=== PATIENT | female | born 1960 | race Caucasian/White ===

== ENCOUNTER 2016-11-04 18:19 | Inpatient (IN) | payer OTHER ==
[~2016-11-04] VITALS: Ht 157.5 cm; Wt 57.6 kg
[2016-11-04] MEDS ORDERED: HYDROmorphONE 1 MG/ML SYG IV STA (18:33)
[2016-11-04] MEDS ORDERED: ONDANSETRON 4 MG INJ IV STA (18:33)
[2016-11-04] MEDS ORDERED: SOD CHLORIDE 0.9% 1,000 ML IV STA (18:33)
[2016-11-04 19:20] LABS: BASOPHIL # 0.1 10^3/ul (0.0-0.1); EOSINOPHILS % 0.3 % (0.0-7.0); HEMATOCRIT 38.3 % (37.0-47.0); HEMOGLOBIN 12.3 g/dl (12.0-16.0); LYMPHOCYTES # 2.1 10^3/ul (0.8-2.9); LYMPHOCYTES % 16.4 % (15.0-51.0); MEAN CORPUSCULAR HEMOGLOBIN 31.9 pg (29.0-33.0); MEAN CORPUSCULAR HGB CONC 32.1 g/dl (32.0-37.0); MEAN CORPUSCULAR VOLUME 99.2 fl (82.0-101.0); MEAN PLATELET VOLUME 12.6 fl (7.4-10.4); MONOCYTE # 0.9 10^3/ul (0.3-0.9); MONOCYTES % 7.4 % (0.0-11.0); NEUTROPHILS % 69.9 % (39.0-77.0); NUCLEATED RED BLOOD CELLS # 0.4 10^3/ul (0.0-0.0); NUCLEATED RED BLOOD CELLS% 3.3 /100WBC (0.0-0.0); PLATELET COUNT 236 10^3/UL (140-415); RED BLOOD COUNT 3.86 10^6/ul (4.20-5.40); RED CELL DISTRIBUTION WIDTH 17.2 % (11.5-14.5); WHITE BLOOD COUNT 12.6 10^3/ul (4.8-10.8)
--- NOTE | 2016-11-04 19:34 | ERA ---
ER Documentation Chief Complaint Date/Time DATE: 11/04/16 TIME: 19:31 Chief Complaint Left arm fracture HPI 56-year-old woman [facility] for pain to the left upper arm, x-ray today revealed pathologic fracture. Patient has metastatic breast cancer. She denies fevers or chills, denies direct trauma to the upper extremity, no chest pain or shortness of breath. ROS All systems reviewed and are negative except as per history of present illness. Medications Home Meds Reported Medications Lorazepam* (Lorazepam*) 0.5 Mg Tablet, 0.5 MG PO Q6 Y for ANXIETY, TAB 11/04/16 Bisacodyl* (Bisacodyl*) 10 Mg Supp, 10 MG IA DAILY, SUPP 11/04/16 [Morphine Slf 20MG/Ml] No Conflict Check, 0.25 ML PO Q3H 11/04/16 Hyoscyamine Sulfate* (Levsin* SL) 0.125 Mg Subl, 0.125 MG SL Q4H Y for EXCESSIVE SECRETION, TAB 11/04/16 Lactulose* (Lactulose*) 20 Gm/30 Ml Solution, 20 GM PO DAILY, ML 11/04/16 Acetaminophen* (Acephen*) 650 Mg Supp.rect, 650 MG IA Q6H Y for FOR TEMP>100F, SUPP.RECT FOR MILD PAIN 11/04/16 Prochlorperazine* (Prochlorperazine*) 10 Mg Tablet, 10 MG PO Q6H Y for NAUSEA, TAB 11/04/16 Metformin Hcl* (Metformin Hcl*) 500 Mg Tablet, 500 MG PO WITH BREAKFAST DINNE, # 60 TAB 11/04/16 Discontinued Reported Medications Prochlorperazine* (Prochlorperazine*) 10 Mg Tablet, 10 MG PO Q6H Y for NAUSEA, TAB 11/04/16 Sennosides* (Senna Lax*) 8.6 Mg Tablet, 2 TAB PO BID, TAB 11/04/16 Docusate Sodium* (Colace*) 100 Mg Capsule, 200 MG PO DAILY, #30 CAP 11/04/16 Allergies Allergies: Coded Allergies: tramadol (Unverified Allergy, Unknown, 11/04/16) PMhx/Soc Metastatic breast cancer, pathologic fractures, diabetes mellitus 2, anxiety disorder, History of Surgery: Yes (tumor removal right breast, hysterectomy) Anesthesia Reaction: No Hx Neurological Disorder: No Hx Respiratory Disorders: No Hx Cardiac Disorders: No Hx Psychiatric Problems: Yes (anxiety) Hx Miscellaneous Medical Probl: Yes (breast ca with mets, developmental delay) Hx Alcohol Use: No Hx Substance Use: No Hx Tobacco Use: No Smoking Status: Never smoker FmHx Family History: No diabetes Physical Exam Vitals Vital Signs Date Time Temp Pulse Resp B/P Pulse Ox O2 Delivery O2 Flow Rate FiO2 11/04/16 19:09 98.8 118 20 121/63 90 11/04/16 18:25 98.8 123 20 121/63 94 Physical Exam Const: [] Head: Atraumatic Eyes: Normal Conjunctiva ENT: Normal External Ears, Nose and Mouth. Neck: Full range of motion..~ No meningismus. Resp: Clear to auscultation bilaterally Cardio: Regular rate and rhythm, no murmurs Abd: Soft, non tender, non distended. Normal bowel sounds Skin: No petechiae or rashes Back: No midline or flank tenderness Ext: Positive left lateral upper extremity tenderness to touch with mild soft tissue swelling, no erythema, no lacerations Neur: Awake and alert Psych: Normal Mood and Affect Result Diagram: 11/07/16 0509 11/07/16 0509 Results 24 hrs Laboratory Tests Test 11/04/16 18:50 White Blood Count 12.610^3/ul Red Blood Count 3.8610^6/ul Hemoglobin 12.3g/dl Hematocrit 38.3% Mean Corpuscular Volume 99.2fl Mean Corpuscular Hemoglobin 31.9pg Mean Corpuscular Hemoglobin Concent 32.1g/dl Red Cell Distribution Width 17.2% Platelet Count 47500^3/UL Mean Platelet Volume 12.6fl Neutrophils % 69.9% Lymphocytes % 16.4% Monocytes % 7.4% Eosinophils % 0.3% Basophils % 1.0% Nucleated Red Blood Cells % 3.3/100WBC Neutrophils # (Manual) 8.810^3/ul Lymphocytes # 2.110^3/ul Monocytes # 0.910^3/ul Eosinophils # 0.010^3/ul Basophils # 0.110^3/ul Nucleated Red Blood Cells # 0.410^3/ul Prothrombin Time 13.5Sec Prothrombin Time Ratio 1.1 INR International Normalized Ratio 1.03 Activated Partial Thromboplast Time 29.6Sec Sodium Level 135mmol/L Potassium Level 3.7mmol/L Chloride Level 99mmol/L Carbon Dioxide Level 29mmol/L Anion Gap 11 Blood Urea Nitrogen 7mg/dl Creatinine 0.42mg/dl Glucose Level 122mg/dl Calcium Level 12.0mg/dl Current Medications Medications (Trade) Dose Ordered Sig/Marielos Route PRN Reason Start Time Stop Time Status Last Admin Dose Admin Sodium Chloride (NS) 1,000 ml @ 1,000 mls/hr Q1H STAT IV 11/04/16 18:33 11/04/16 19:32 DC 11/04/16 19:00 Hydromorphone HCl (Dilaudid) 1 mg ONCE STAT IV 11/04/16 18:33 11/04/16 18:34 DC 11/04/16 19:01 Ondansetron HCl (Zofran Inj) 4 mg ONCE STAT IV 11/04/16 18:33 11/04/16 18:34 DC 11/04/16 19:00 Procedures/MDM IV line was established patient was placed on quality assurance monitor final rhythm strip revealed a sinus rhythm at about 80 bpm with upright P and T waves. Patient was afebrile. I administered 1 L normal saline intravenously, hydromorphone 1 mg IV and Zofran 4 mg IV. Patient already has the x-ray report of the left humerus, so further imaging of the humerus has been deferred at this time. Chest X-ray 1V Interpreted by me: Soft Tissue: No acute abnormalities Bones: No acute abnormalities Mediastinum/Cardiac Silhouette/Lungs: No acute abnormalities X-ray left elbow 3V Interpreted by me: Fat Pads: Normal Bones: No fracture Joints: No dislocation Foreign body: None EKG performed, read by me: 80 bpm, normal sinus rhythm, normal axis, no acute ST segment changes, narrow QRS complex, with good R-wave progression in precordial leads. CBC was normal, electrolytes revealed hypercalcemia consistent with metastatic breast cancer, coagulation profile unremarkable. I spoke to her orthopedic surgeon physical education instructor who recommended inpatient management for possible ORIF Patient admitted to Dr. Connors Departure Diagnosis: Primary Impression: Pathologic fracture of humerus Qualified Code: M84.522A - Pathological fracture of left humerus due to neoplastic disease, initial encounter Additional Impressions: Intractable pain Metastatic breast cancer Condition: SALBADOR Vinson MD Nov 04, 2016 19:34
[2016-11-04 19:42] LABS: CREATININE 0.42 mg/dl (0.44-1.00); POTASSIUM 3.7 mmol/L (3.5-5.1)
[2016-11-04 20:19] LABS: INR 1.03; PROTIME 13.5 Sec (12.2-14.2); PT RATIO 1.1
[2016-11-04 20:20] LABS: PARTIAL THROMBOPLASTIN TIME 29.6 Sec (25.0-35.0)
[2016-11-04] MEDS ORDERED: METF500T4 PO (20:38)
[2016-11-04] MEDS ORDERED: DOCU-144 PO (20:41)
[2016-11-04] MEDS ORDERED: PROC10TA10 PO ×2 (20:42→21:03)
[2016-11-04] MEDS ORDERED: SENN-53 PO (20:42)
[2016-11-04] MEDS ORDERED: ACET650S9 PR (20:44)
[2016-11-04] MEDS ORDERED: LACT20SO2 PO (20:45)
[2016-11-04] MEDS ORDERED: [UNRECOGNIZED DRUG - CODE] SL (20:46)
[2016-11-04 20:55] VITALS: TEMP 98.8
[2016-11-04] MEDS ORDERED: MORPHINE PO (20:56)
[2016-11-04] MEDS ORDERED: BISA10SU75 PR (20:57)
[2016-11-04] MEDS ORDERED: LORA0.5T PO (20:58)
[2016-11-04 22:09] VITALS: BP 137/87; PULSE 110; RESP 20
[2016-11-04 22:10] VITALS: Ht 157.5 cm; Wt 57.6 kg
[2016-11-04] MEDS ORDERED: ACETAMINOPHEN 325 MG TAB PO PRN (23:30)
[2016-11-04] MEDS: SOD CHLORIDE 0.9% 1,000 ML IV SCH (23:44)
[2016-11-04] MEDS: morphine 4 MG/ML VIAL IV SCH (23:44)
[2016-11-04] MEDS: ONDANSETRON 4 MG INJ IV PRN (23:45)
[2016-11-05 03:26] VITALS: BP 126/81; RESP 22
[2016-11-05] MEDS: morphine 4 MG/ML VIAL IV SCH ×4 (05:43→23:47)
[2016-11-05] MEDS: ONDANSETRON 4 MG INJ IV PRN ×2 (05:43→16:41)
[2016-11-05 08:30] VITALS: BP 119/73; RESP 22
[2016-11-05 09:39] LABS: ABNORMAL IP MESSAGE 1; BASOPHIL # 0.1 10^3/ul (0.0-0.1); BASOPHILS % 0.7 % (0.0-2.0); EOSINOPHILS % 0.2 % (0.0-7.0); HEMATOCRIT 34.5 % (37.0-47.0); HEMOGLOBIN 10.8 g/dl (12.0-16.0); LYMPHOCYTES # 1.6 10^3/ul (0.8-2.9); LYMPHOCYTES % 13.5 % (15.0-51.0); MEAN CORPUSCULAR HEMOGLOBIN 31.8 pg (29.0-33.0); MEAN CORPUSCULAR HGB CONC 31.3 g/dl (32.0-37.0); MEAN CORPUSCULAR VOLUME 101.5 fl (82.0-101.0); MEAN PLATELET VOLUME 12.7 fl (7.4-10.4); MONOCYTE # 0.9 10^3/ul (0.3-0.9); MONOCYTES % 8.1 % (0.0-11.0); NUCLEATED RED BLOOD CELLS # 0.4 10^3/ul (0.0-0.0); NUCLEATED RED BLOOD CELLS% 3.1 /100WBC (0.0-0.0); PLATELET COUNT 219 10^3/UL (140-415); RED CELL DISTRIBUTION WIDTH 17.2 % (11.5-14.5); WHITE BLOOD COUNT 11.6 10^3/ul (4.8-10.8)
[2016-11-05 09:41] LABS: POSITIVE DIFF @See below
--- NOTE | 2016-11-05 09:55 | RADRPT ---
PROCEDURE: XR Chest. CLINICAL INDICATION: Cancer. TECHNIQUE: Single frontal view of the chest. COMPARISON: None. FINDINGS: The cardiomediastinal silhouette is within normal limits. Tortuous thoracic aorta. Mild elevation o f the right hemidiaphragm. The lungs are clear. No signs of pleural fluid or pneumothorax are seen. The osseous structures and soft tissues are unremarkable. IMPRESSION: No evidence for active cardiopulmonary disease. RPTAT: [facility] Physician Srini Date Time Electronically viewed and signed by Physician Srini on 11/04/2016 19:38 RS/
--- NOTE | 2016-11-05 09:56 | RADRPT ---
PROCEDURE: CR Left Elbow CLINICAL INDICATION: Cancer TECHNIQUE: AP, lateral, and an oblique radiographs were submitted. COMPARISON: None FINDINGS: Osseous Structures: There is an aggressive lytic process involving the mid-left humerus seen at the edge of the study on the AP view. The osseous elements otherwise appear intact. Joint Spaces: The joint spaces are well maintained. No joint effusion is evident. Soft Tissues: Appear unremarkable. IMPRESSION: 1. There is an aggressive appearing lytic process involving the mid diaphysis of the left humerus s een on the edge of the AP view only. This could be better evaluated by means of a left humerus seri es. 2. The elbow is otherwise unremarkable. Physician Byron Date Time Electronically viewed and signed by Physician Byron on 11/04/2016 20:39 /
[2016-11-05 10:12] LABS: CREATININE 0.43 mg/dl (0.44-1.00); POTASSIUM 3.4 mmol/L (3.5-5.1)
--- NOTE | 2016-11-05 10:20 | HP ---
DATE OF ADMISSION: 11/04/2016 CHIEF COMPLAINT: Left upper arm pain. HISTORY OF PRESENT ILLNESS: The patient is an 56-year-old female with history of cognitive developmental delay, but she has high functional, also has metastatic cancer of unknown etiology, suspicious for breast cancer. The patient also has history of diabetes but has been refusing meds. The patient is a resident of [facility] but has been under hospice care. The patient was complaining of left upper extremity pain, which was severe. It started a few days ago. The patient could not move her arm because of severe pain. The patient did not have any fall. No ecchymoses. The patient did notice a bulge on the left upper part of her arm. The patient was given [id number] Ultram, however, continued to have significant pain. A stat x-rays were ordered at the [facility] today, and the patient was noted to have ambulated minimally displaced fracture of the mid humeral shaft with associated areas of lysis representing pathological fractures secondary to bony METS. The patient also underwent left shoulder x-ray, which revealed chronic changes with concern to lytic metastases in the proximal humerus and at the central rib cage suspicious for lytic metastatic disease. The patient was sent to [facility] ER after revoking hospice. The patient was noted to have stable vital signs. However, the patient had significant pain and did receive IV Dilaudid and IV Zofran. I spoke with Dr. Pedro, ER physician, and the decision was made to admit her on med/surg for orthopedic evaluation and pain control. The patient's calcium incidentally was noted to be 12. The patient denies any chest pain or shortness of breath. The patient has been progressively getting weaker. The patient's weight back in August 2016 was 135 pounds. The patient has lost significant weight due to poor p.o. intake and now she is down to 57.6 kg. The patient did report nausea and vomiting after starting tramadol. Therefore, it will be discontinued. The patient denied any leg edema. No reported resting leg pain. The patient has chest wall pain. No reported headache or syncope. No history of sore throat. No history of cough. The patient is frail, weak, and due to pain has not been getting out of bed. No focal weakness. The patient has remained awake, alert, despite developmental delay. The patient is high functional. The patient also has a history of anxiety. PAST SURGICAL HISTORY: The patient is status post hysterectomy and breast lumpectomy. SOCIAL HISTORY: No smoking. No alcohol. ALLERGIES: NONE. FAMILY HISTORY: Noncontributory for patient's condition. PHYSICAL EXAMINATION: GENERAL: The patient is to be conscious, awake, alert, and fairly oriented. VITAL SIGNS: Upon arrival in the ER, temperature 98.8, pulse 123, respirations 20, blood pressure 121/63, O2 sat 94 percent on 3 L nasal cannula. HEENT: Atraumatic and normocephalic. Conjunctivae are normal. Oropharynx is clear. NECK: Supple. No thyromegaly. CHEST: Fairly clear. No use of accessory muscles. CV: Regular rate and rhythm. S1, S2 normal. No murmur. ABDOMEN: Soft and nontender. Bowel sounds are present. EXTREMITIES: No ankle edema. No clubbing or cyanosis. Pedal pulses are palpable. SKIN: Without acute rash. The patient multiple decubitus in the sacral coccygeal area. Please see description under nursing assessment. NEURO: The patient is awake and alert with generalized weakness. MUSCULOSKELETAL: The patient has local bulge in the left upper humerus, and it is extremely tender to touch. LABS: Sodium 135, potassium 3.7, BUN 7, creatinine 0.4, glucose 122, calcium 12. normal. WBC 12.6, hemoglobin 12.3, platelet 236. Chest x-ray, echo, and EKG pending. IMPRESSION: 1. Pathological fracture, left humerus. 2. Metastatic cancer of unknown etiology with extensive skeletal metastasis, possibly from breast cancer. 3. History of lumbar vertebral fracture from bony METS. 4. Anxiety. 5. Cognitive development delay. PLAN: The patient admitted on medical floor. The patient will be given IV fluids, IV morphine. Due to ongoing weight loss and diminished appetite, we will continue her on regular diet and also, as per the patient request, will not check her blood sugar and will not put her on any diabetic medication. Also, a consult from Dr. Gill will be requested. We will also obtain an echocardiogram for preop cardiac evaluation in case surgical intervention is needed. Further recommendations will depend on the patient's hospital course. We will do follow-up labs. Plan of care was discussed with Dr. Pedro, ER physician. Dictated By: You Connors MD /moreno/grs /Document#: [id number]
[2016-11-05] MEDS: SOD CHLORIDE 0.9% 1,000 ML IV SCH (12:18)
[2016-11-05 13:15] VITALS: BP 112/60; RESP 20
--- NOTE | 2016-11-05 14:21 | PN ---
Date/Time of Note Date/Time of Note DATE: 11/05/16 TIME: 14:19 Assessment/Plan VTE Prophylaxis VTE Prophylaxis Intervention: other Lines/Catheters IV Catheter Type (from Nrs): Peripheral IV Urinary Cath still in place: No Assessment/Plan Assessment/Plan 1. Hypokalemia- replet K, am BMP 1. Pathological fracture, left humerus. - ortho consult- Dr Gill NOTIFIED 2. Metastatic cancer of unknown etiology with extensive skeletal metastasis, possibly from breast cancer. 3. History of lumbar vertebral fracture from bony METS. 4. Anxiety. 5. Cognitive development delay.- con to monitor Plan of care dw Dr Connors.staff Subjective 24 Hr Interval Summary Free Text/Dictation resting, alert, awake, c/o left upper arm pain, afebrile, Dr Gill was notified, aw family as well, Respiratory: no complaints Cardiovascular: no complaints Gastrointestinal: no complaints Musculoskeletal: no complaints Skin: no complaints Exam/Review of Systems Vital Signs Vitals Vital Signs Date Time Temp Pulse Resp B/P Pulse Ox O2 Delivery O2 Flow Rate FiO2 11/05/16 09:30 Nasal Cannula 2.0 11/05/16 08:30 97.8 92 22 119/73 97 Intake and Output 11/04/16 11/04/16 11/05/16 15:00 23:00 07:00 Intake Total 930 ml Balance 930 ml Exam Constitutional: alert, oriented Cardiovascular: nl pulses, regular rate and rhythm Gastrointestinal: non-tender, soft Musculoskeletal: other Extremities: normal pulses Neurological: nl mental status, nl speech Results Result Diagram: 11/05/1692311/05/16 0924 Results 24 hrs Laboratory Tests Test 11/04/16 18:50 11/05/16 09:24 White Blood Count 12.6 H 11.6 H Red Blood Count 3.86 L 3.40 L Hemoglobin 12.3 10.8 L Hematocrit 38.3 34.5 L Mean Corpuscular Volume 99.2 101.5 H Mean Corpuscular Hemoglobin 31.9 31.8 Mean Corpuscular Hemoglobin Concent 32.1 31.3 L Red Cell Distribution Width 17.2 H 17.2 H Platelet Count 236 219 Mean Platelet Volume 12.6 H 12.7 H Neutrophils % 69.9 72.0 Lymphocytes % 16.4 13.5 L Monocytes % 7.4 8.1 Eosinophils % 0.3 0.2 Basophils % 1.0 0.7 Nucleated Red Blood Cells % 3.3 H 3.1 H Neutrophils # (Manual) 8.8 H 8 H Lymphocytes # 2.1 1.6 Monocytes # 0.9 0.9 Eosinophils # 0.0 0.0 Basophils # 0.1 0.1 Nucleated Red Blood Cells # 0.4 H 0.4 H Prothrombin Time 13.5 Prothrombin Time Ratio 1.1 INR International Normalized Ratio 1.03 Activated Partial Thromboplast Time 29.6 Sodium Level 135 139 Potassium Level 3.7 3.4 L Chloride Level 99 104 Carbon Dioxide Level 29 31 Anion Gap 11 7 L Blood Urea Nitrogen 7 7 Creatinine 0.42 L 0.43 L Glucose Level 122 88 Calcium Level 12.0 H 12.0 H Medications Medications Current Medications Ondansetron HCl (Zofran Inj) 4 mg Q6H PRN IV NAUSEA AND/OR VOMITING Last administered on 11/05/16 05:43; Admin Dose 4 MG; Start 11/04/16 at 23:30 Morphine Sulfate (morphine) 4 mg Q6H IV Last administered on 11/05/16 11:35; Admin Dose 4 MG; Start 11/05/16 at 00:00 Morphine Sulfate 4 mg 4 mg Q3H PRN IV BREAKTHROUGH PAIN; Start 11/05/16 at 01: 00 Sodium Chloride (NS) 1,000 ml @ 75 mls/hr [id number] IV Last administered on 11/05 12:18; Admin Dose 75 MLS/HR; Start 11/04/16 at 23:30 Acetaminophen (Tylenol Tab) 650 mg Q4H PRN PO PAIN AND OR ELEVATED TEMP; Start 11/04/16 at 23:30 NATALI RAMIREZ Nov 05, 2016 14:21
[2016-11-05] MEDS ORDERED: POTASSIUM CHLORIDE (SR) 20 MEQ TAB PO STA (14:22)
--- NOTE | 2016-11-05 14:28 | RADRPT ---
Echocardiogram Report Patient Name: JASON LO Gender: Female Date: 1960 Study Date: 05-Nov-2016 Internetworking Technician: Vikas Gorman RDCS Location: 430 Ref. Physician: KRYSTAL NOBLE Quality: Technically Difficult Study Procedures: Transthoracic echocardiogram with complete 2D, M-Mode, and doppler examination. Indications: Pre-op. 2D/M Mode Doppler Measurement Value Normal Ranges Measurement Value Normal Ranges LVIDd 2D 3.3 3.5 - 5.6 cm AV Peak Cuong 1.2 m/sec LVIDs 2D 2.1 2.1 - 4.1 cm AV Peak PG 5.9 mmHg LVPWd 2D 1.1 0.6 - 1.1 cm LVOT Peak Cuong 1.1 m/sec IVSd 2D 1.1 0.6 - 1.1 cm LVOT Peak PG 5.1 mmHg AoR Diam 2D 2.7 2.0 - 3.7 cm MV E Peak Cuong 0.6 m/sec EDV 2D 45.2 cm3 MV A Peak Cuong 0.8 m/sec ESV 2D 8.9 cm3 MV E/A 0.8 LA Dimen 2D 2.3 2.3 - 4.0 cm MV Decel Time 154 msec MV Decel [place] 4 MV E/A 0.8 TR Peak Cuong 2.0 m/sec TR Peak PG 15.7 mmHg RVSP 19.0 mmHg Findings Left Ventricle: Overall, normal left ventricular systolic function. Not all segments visualized. Normal left ventricular cavity size. Mild concentric left ventricular hypertrophy. Ejection fraction is visually estimated at 60 %. Tissue Doppler/Mitral Doppler indices are consistent with impaired relaxation (Stage I diastolic dysfunction). Right Ventricle: Normal right ventricular size. Normal right ventricular systolic function. Left Atrium: The left atrium is normal in size. Right Atrium: The right atrium is normal in size. Mitral Valve: Normal appearance and function of the mitral valve with trace physiologic regurgitation. Aortic Valve: Normal appearance of the aortic valve. No significant aortic stenosis or insufficiency. Tricuspid Valve: Normal appearance of the tricuspid valve. Estimated peak PA systolic pressure 19 mmHg. There is trace tricuspid regurgitation. Pulmonic Valve: Pulmonic valve not well visualized. Pericardium: Normal pericardium with no significant pericardial effusion. Aorta: Normal aortic root. IVC: Normal size and normal respiratory collapse consistent with normal right atrial pressure. Conclusions 1.Overall, normal left ventricular systolic function. Not all segments visualized. Normal left ventricular cavity size. Mild concentric left ventricular hypertrophy. Ejection fraction is visually estimated at 60 %. Tissue Doppler/Mitral Doppler indices are consistent with impaired relaxation (Stage I diastolic dysfunction). 2.Normal right ventricular size. Normal right ventricular systolic function. 3.The left atrium is normal in size. 4.The right atrium is normal in size. 5.No significant valvular stenosis or regurgitation seen. 6.Normal pericardium with no significant pericardial effusion. Electronically Signed By: Marquise Gayle 05-Nov-2016 14:26:46 -0700 Patient Name: JASON LO Study Date: 05-Nov-2016 [id number]
[2016-11-05] MEDS: morphine 4 MG/ML VIAL IV PRN (18:37)
[2016-11-05 20:40] VITALS: BP 112/74; RESP 20
--- NOTE | 2016-11-05 21:09 | RADRPT ---
PROCEDURE: XR Humerus. CLINICAL INDICATION: Pathologic fracture. TECHNIQUE: AP and lateral views of the left humerus were performed. COMPARISON: 11/04/2016 left elbow FINDINGS: Comminuted laterally angulated midshaft fracture of the left humerus. There appears to be exuberant callus formation suggestive of interval healing. Permeative appearance to the lytic lesions within the proximal and mid humeral shaft are noted recent question of lymphoma or metastatic disease. IMPRESSION: 1. Midshaft angulated comminuted fracture deformity of the left humerus with permeative appearance of the left humerus suggestive of pathologic fracture and metastatic disease. Bone survey or whole body bone scan is recommended for further evaluation of metastatic disease. RPTAT:AAJJ Physician Cassandra Date Time Electronically viewed and signed by Physician Cassandra on 11/05/2016 21:09 JOSE DANIEL/
--- NOTE | 2016-11-05 22:19 | CONS ---
DATE OF ADMISSION: 11/04/2016 DATE OF CONSULTATION: 11/05/2016 Orthopedic surgical consultation report HISTORY OF PRESENT ILLNESS: Patient is a 56-year-old female, a resident of a assisted facility under the care of the hospice care, who was admitted on 11/04/2016 through the emergency room because of the painful swelling involving the left arm which developed about several days ago without any memorable trauma. She is known to have multiple metastasis involving the spine and ribs from uncertain origin, probably the breast cancer. She obviously had the radiologic studies of the left humerus and was found to have the pathologic fracture and was sent to the emergency room. She is known to have diabetes and anxiety disorders. PHYSICAL EXAMINATION: My examination revealed a obvious tender swelling involving the upper portion of the left arm. The area was extremely the tender. The range of motion of the left shoulder was extremely limited because of the pain. There were no evidence of acute neurovascular compromise involving the right and left upper extremity. X-RAYS: The x-rays of the left humerus was not available for my review. However, a glimpse of the proximal shaft of the left humerus was visible in the chest x-ray and also in the x-rays of left elbow and there seems to be a pathologic fracture involving the shaft of the left humerus. IMPRESSION: Pathologic fracture of the left humerus. TREATMENT PLAN: 1. Obtain full review x-rays of the left humerus before planning on surgery. 2. Probably a candidate for intramedullary nailing of the pathologic fracture when patient is medically cleared for surgery. Dictated By: In Karma Gill MD /moreno/aidan /Document#: [id number]
[2016-11-06] MEDS: SOD CHLORIDE 0.9% 1,000 ML IV SCH ×2 (01:18→15:15)
[2016-11-06 03:18] VITALS: BP 110/71; RESP 20
[2016-11-06 05:11] LABS: ABNORMAL IP MESSAGE 1; BASOPHIL # 0.1 10^3/ul (0.0-0.1); EOSINOPHILS # 0.1 10^3/ul (0.0-0.5); EOSINOPHILS % 1.3 % (0.0-7.0); HEMATOCRIT 34.2 % (37.0-47.0); HEMOGLOBIN 10.7 g/dl (12.0-16.0); LYMPHOCYTES # 1.7 10^3/ul (0.8-2.9); LYMPHOCYTES % 16.4 % (15.0-51.0); MEAN CORPUSCULAR HEMOGLOBIN 31.8 pg (29.0-33.0); MEAN CORPUSCULAR HGB CONC 31.3 g/dl (32.0-37.0); MEAN CORPUSCULAR VOLUME 101.8 fl (82.0-101.0); MEAN PLATELET VOLUME 12.6 fl (7.4-10.4); MONOCYTE # 0.9 10^3/ul (0.3-0.9); MONOCYTES % 8.3 % (0.0-11.0); NEUTROPHILS % 67.4 % (39.0-77.0); NUCLEATED RED BLOOD CELLS # 0.3 10^3/ul (0.0-0.0); NUCLEATED RED BLOOD CELLS% 3.3 /100WBC (0.0-0.0); PLATELET COUNT 208 10^3/UL (140-415); RED BLOOD COUNT 3.36 10^6/ul (4.20-5.40); RED CELL DISTRIBUTION WIDTH 17.4 % (11.5-14.5); WHITE BLOOD COUNT 10.3 10^3/ul (4.8-10.8)
[2016-11-06 05:38] LABS: CREATININE 0.4 mg/dl (0.44-1.00); POTASSIUM 3.6 mmol/L (3.5-5.1)
[2016-11-06 05:51] LABS: POSITIVE DIFF @See below
[2016-11-06 05:55] LABS: CALCIUM 13.2 mg/dl (8.4-10.2)
[2016-11-06] MEDS: morphine 4 MG/ML VIAL IV SCH ×3 (06:17→18:00)
[2016-11-06 08:04] VITALS: BP 118/73; RESP 20
[2016-11-06] MEDS: ONDANSETRON 4 MG INJ IV PRN (12:34)
--- NOTE | 2016-11-06 12:43 | PN ---
Date/Time of Note Date/Time of Note DATE: 11/06/16 TIME: 12:39 Assessment/Plan VTE Prophylaxis VTE Prophylaxis Intervention: SCD's Lines/Catheters IV [facility]ter [facility]from [facility]): Peripheral IV Urinary Cath still in place: No Assessment/Plan Assessment/Plan - Pathological fracture, left humerus. Dr. Gill is following an orthopedic surgery consultation. Patient is cleared for surgery from internal medicine standpoint. 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 - History of lumbar vertebral fracture from bony METS. - Hypercalcemia secondary to #2, will give 4 mg of Zometa. - Anxiety. - Cognitive development delay. Further recommendations based on clinical course. Plan of care discussed with Dr. Connors. Exam/Review of Systems Vital Signs Vitals Vital Signs Date Time Temp Pulse Resp B/P Pulse Ox O2 Delivery O2 Flow Rate FiO2 11/06/16 08:04 97.7 88 20 118/73 97 11/05/16 20:10 Nasal Cannula 2.0 Intake and Output 11/05/16 11/05/16 11/06/16 14:59 22:59 06:59 Intake Total 2425 ml 1000 ml Balance 2425 ml 1000 ml Exam Constitutional: alert, oriented Psych: confusion, other (Developmentally delayed) Head: normocephalic Neck: supple Respiratory: normal air movement Cardiovascular: nl pulses Gastrointestinal: non-tender, soft Extremities: normal pulses, other (Left upper extremity tenderness, ) Skin: nl turgor Results Result Diagram: 11/06/16 0446 11/06/16 0446 Results 24 hrs Laboratory Tests Test 11/06/16 04:46 White Blood Count 10.3 Red Blood Count 3.36 L Hemoglobin 10.7 L Hematocrit 34.2 L Mean Corpuscular Volume 101.8 H Mean Corpuscular Hemoglobin 31.8 Mean Corpuscular Hemoglobin Concent 31.3 L Red Cell Distribution Width 17.4 H Platelet Count 208 Mean Platelet Volume 12.6 H Neutrophils % 67.4 Lymphocytes % 16.4 Monocytes % 8.3 Eosinophils % 1.3 Basophils % 1.0 Nucleated Red Blood Cells % 3.3 H Neutrophils # (Manual) 7 Lymphocytes # 1.7 Monocytes # 0.9 Eosinophils # 0.1 Basophils # 0.1 Nucleated Red Blood Cells # 0.3 H Sodium Level 145 H Potassium Level 3.6 Chloride Level 103 Carbon Dioxide Level 32 H Anion Gap 14 # Blood Urea Nitrogen 6 L Creatinine 0.40 L Glucose Level 81 Calcium Level 13.2 *H Medications Medications Current Medications Ondansetron HCl (Zofran Inj) 4 mg Q6H PRN IV NAUSEA AND/OR VOMITING Last administered on 11/06/16 12:34; Admin Dose 4 MG; Start 11/04/16 at 23:30 Morphine Sulfate (morphine) 4 mg Q6H IV Last administered on 11/06/16 06:17; Admin Dose 4 MG; Start 11/05/16 at 00:00 Morphine Sulfate 4 mg 4 mg Q3H PRN IV BREAKTHROUGH PAIN Last administered on 18:37; Admin Dose 4 MG; Start 11/05/16 at 01:00 Sodium Chloride (NS) 1,000 ml @ 75 mls/hr [id number] IV Last administered on 11/06 01:18; Admin Dose 75 MLS/HR; Start 11/04/16 at 23:30 Acetaminophen (Tylenol Tab) 650 mg Q4H PRN PO PAIN AND OR ELEVATED TEMP; Start 11/04/16 at 23:30 RASHAWN MOONEY Nov 06, 2016 12:43
[2016-11-06 13:41] VITALS: BP 126/80; RESP 18
--- NOTE | 2016-11-06 13:43 | RADRPT ---
Vent Rate: 104 bpm RR Interval: 0 msec [place] Interval: 134 msec QRS Duration: 74 msec QT Interval: 328 msec QTC Interval: 431 msec P-R-T [place]: 48 - -28 - -[address]/T wave abnormality, consider inferior ischemia ST/T wave abnormality, consider anterior ischemia Abnormal ECG Electronically Signed By: Isidro Perez [id number]
[2016-11-06] MEDS ORDERED: ZOLEDRONIC ACID 4 MG in SOD CHLORIDE 0.9% 100 ML IVPB ONE (14:00)
[2016-11-06 21:36] VITALS: BP 130/78; RESP 22
[2016-11-07 02:55] VITALS: BP 126/76; RESP 22
[2016-11-07] MEDS: SOD CHLORIDE 0.9% 1,000 ML IV SCH ×3 (05:28→21:16)
[2016-11-07] MEDS: ONDANSETRON 4 MG INJ IV PRN (05:29)
[2016-11-07] MEDS: morphine 4 MG/ML VIAL IV SCH ×4 (05:30→18:00)
[2016-11-07 06:05] LABS: ABNORMAL IP MESSAGE 1; BASOPHIL # 0.1 10^3/ul (0.0-0.1); BASOPHILS % 0.7 % (0.0-2.0); EOSINOPHILS # 0.1 10^3/ul (0.0-0.5); EOSINOPHILS % 0.7 % (0.0-7.0); HEMATOCRIT 37.2 % (37.0-47.0); HEMOGLOBIN 11.7 g/dl (12.0-16.0); LYMPHOCYTES % 9.7 % (15.0-51.0); MEAN CORPUSCULAR HEMOGLOBIN 31.8 pg (29.0-33.0); MEAN CORPUSCULAR HGB CONC 31.5 g/dl (32.0-37.0); MEAN CORPUSCULAR VOLUME 101.1 fl (82.0-101.0); MEAN PLATELET VOLUME 12.7 fl (7.4-10.4); MONOCYTE # 0.5 10^3/ul (0.3-0.9); MONOCYTES % 4.6 % (0.0-11.0); NEUTROPHILS % 78.7 % (39.0-77.0); NUCLEATED RED BLOOD CELLS # 0.3 10^3/ul (0.0-0.0); PLATELET COUNT 192 10^3/UL (140-415); RED BLOOD COUNT 3.68 10^6/ul (4.20-5.40); RED CELL DISTRIBUTION WIDTH 17.1 % (11.5-14.5); WHITE BLOOD COUNT 10.7 10^3/ul (4.8-10.8)
[2016-11-07 06:27] LABS: CREATININE 0.39 mg/dl (0.44-1.00); POTASSIUM 3.1 mmol/L (3.5-5.1)
[2016-11-07 06:29] LABS: POSITIVE DIFF @See below
[2016-11-07 06:30] LABS: INR 1.04; PROTIME 13.6 Sec (12.2-14.2); PT RATIO 1.1
[2016-11-07 06:31] LABS: THROMBIN TIME 14.7 SEC (13.8-19.1)
[2016-11-07 07:31] VITALS: BP 119/76; RESP 19
--- NOTE | 2016-11-07 09:55 | PN ---
Date/Time of Note Date/Time of Note DATE: 11/07/16 TIME: 09:54 Assessment/Plan VTE Prophylaxis VTE Prophylaxis Intervention: other Lines/Catheters IV C[facility]ter Type (from [facility]): Peripheral IV Urinary Cath still in place: No Assessment/Plan Chief Complaint/Hosp Course - Pathological fracture, left humerus. Dr. Gill is following an orthopedic surgery consultation. Patient is cleared for surgery from internal medicine standpoint. 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 - History of lumbar vertebral fracture from bony METS. - Hypercalcemia secondary to #2, will give 4 mg of Zometa. - Anxiety. - Cognitive development delay. Problems: Subjective 24 Hr Interval Summary Free Text/Dictation Patient complain of pain in arm Exam/Review of Systems Vital Signs Vitals Vital Signs Date Time Temp Pulse Resp B/P Pulse Ox O2 Delivery O2 Flow Rate FiO2 11/07/16 07:31 98.9 88 19 119/76 99 11/06/16 08:30 Nasal Cannula 2.0 Intake and Output 11/06/16 11/06/16 11/07/16 15:00 23:00 07:00 Intake Total 2020 ml 2275 ml Output Total 1200 ml Balance 2020 ml 1075 ml Exam Constitutional: well developed Head: atraumatic, normocephalic Neck: supple Respiratory: diminished breath sounds Cardiovascular: regular rate and rhythm Gastrointestinal: non-tender, soft Extremities: normal pulses Results Result Diagram: 11/07/16 0509 11/07/16 0509 Results 24 hrs Laboratory Tests Test 11/07/16 05:09 White Blood Count 10.7 Red Blood Count 3.68 L Hemoglobin 11.7 L Hematocrit 37.2 Mean Corpuscular Volume 101.1 H Mean Corpuscular Hemoglobin 31.8 Mean Corpuscular Hemoglobin Concent 31.5 L Red Cell Distribution Width 17.1 H Platelet Count 181 Mean Platelet Volume 12.7 H Neutrophils % 78.7 H Lymphocytes % 9.7 L Monocytes % 4.6 Eosinophils % 0.7 Basophils % 0.7 Nucleated Red Blood Cells % 3.0 H Neutrophils # (Manual) 8 H Lymphocytes # 1.0 Monocytes # 0.5 Eosinophils # 0.1 Basophils # 0.1 Nucleated Red Blood Cells # 0.3 H Prothrombin Time 13.6 Prothrombin Time Ratio 1.1 INR International Normalized Ratio 1.04 Activated Partial Thromboplast Time 20.0 L Thrombin Time 14.7 Sodium Level 146 H Potassium Level 3.1 L Chloride Level 102 Carbon Dioxide Level 32 H Anion Gap 15 Blood Urea Nitrogen 7 Creatinine 0.39 L Glucose Level 85 Calcium Level 14.0 *H Medications Medications Current Medications Ondansetron HCl (Zofran Inj) 4 mg Q6H PRN IV NAUSEA AND/OR VOMITING Last administered on 11/07/16 05:29; Admin Dose 4 MG; Start 11/04/16 at 23:30 Morphine Sulfate (morphine) 4 mg Q6H IV Last administered on 11/07/16 05:30; Admin Dose 4 MG; Start 11/05/16 at 00:00 Morphine Sulfate 4 mg 4 mg Q3H PRN IV BREAKTHROUGH PAIN Last administered on 18:37; Admin Dose 4 MG; Start 11/05/16 at 01:00 Sodium Chloride (NS) 1,000 ml @ 75 mls/hr [id number] IV Last administered on 11/07 05:28; Admin Dose 75 MLS/HR; Start 11/04/16 at 23:30 Acetaminophen (Tylenol Tab) 650 mg Q4H PRN PO PAIN AND OR ELEVATED TEMP; Start 11/04/16 at 23:30 MADDIE AN Nov 07, 2016 09:55
[2016-11-07 12:00] VITALS: BP 134/77; RESP 17
[2016-11-07 20:00] VITALS: BP 127/71; RESP 19
[2016-11-08] MEDS: morphine 4 MG/ML VIAL IV SCH ×4 (06:00→18:00)
[2016-11-08 08:14] VITALS: BP 110/68; RESP 18
--- NOTE | 2016-11-08 11:44 | PN ---
Date/Time of Note Date/Time of Note DATE: 11/08/16 TIME: 11:44 Assessment/Plan VTE Prophylaxis VTE Prophylaxis Intervention: other Lines/Catheters IV [facility]ter Type (from [facility]): Peripheral IV Urinary Cath still in place: No Assessment/Plan Chief Complaint/Hosp Course - Pathological fracture, left humerus. Dr. Gill is following an orthopedic surgery consultation. Patient is cleared for surgery from internal medicine standpoint. 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 - History of lumbar vertebral fracture from bony METS. - Hypercalcemia secondary to #2, will give 4 mg of Zometa. - Anxiety. - Cognitive development delay. Problems: Subjective 24 Hr Interval Summary Free Text/Dictation Patient resting, comfortable Exam/Review of Systems Vital Signs Vitals Vital Signs Date Time Temp Pulse Resp B/P Pulse Ox O2 Delivery O2 Flow Rate FiO2 11/08/16 08:14 98.1 81 18 110/68 98 11/07/16 20:22 Nasal Cannula 2.0 Intake and Output 11/07/16 11/07/16 11/08/16 15:00 23:00 07:00 Intake Total 1260 ml 1000 ml Balance 1260 ml 1000 ml Exam Constitutional: well developed Head: atraumatic, normocephalic Neck: supple Respiratory: clear to auscultation Cardiovascular: regular rate and rhythm Gastrointestinal: non-tender, soft Extremities: normal pulses Results Result Diagram: 11/07/16 0509 11/07/16 0509 Medications Medications Current Medications Ondansetron HCl (Zofran Inj) 4 mg Q6H PRN IV NAUSEA AND/OR VOMITING Last administered on 11/07/16 05:29; Admin Dose 4 MG; Start 11/04/16 at 23:30 Morphine Sulfate (morphine) 4 mg Q6H IV Last administered on 11/08/16 10:33; Admin Dose 4 MG; Start 11/05/16 at 00:00 Morphine Sulfate 4 mg 4 mg Q3H PRN IV BREAKTHROUGH PAIN Last administered on 18:37; Admin Dose 4 MG; Start 11/05/16 at 01:00 Sodium Chloride (NS) 1,000 ml @ 75 mls/hr [id number] IV Last administered on 11/07 21:16; Admin Dose 75 MLS/HR; Start 8/16/17 at 23:30 Acetaminophen (Tylenol Tab) 650 mg Q4H PRN PO PAIN AND OR ELEVATED TEMP; Start 11/04/16 at 23:30 MADDIE AN Nov 08, 2016 11:44
[2016-11-08 14:00] VITALS: BP 108/66; RESP 18
[2016-11-08] MEDS: morphine 4 MG/ML VIAL IV PRN (16:17)
[2016-11-08 19:10] VITALS: BP 98/61; RESP 18
[2016-11-08] MEDS: SOD CHLORIDE 0.9% 1,000 ML IV SCH (22:53)
[2016-11-09] VITALS (23 sets, daily range): BP systolic 101–160; BP diastolic 60–84; PULSE 92–113; RESP 16–25
[2016-11-09] MEDS: morphine 4 MG/ML VIAL IV SCH ×4 (00:08→18:00)
[2016-11-09] MEDS ORDERED: EPHEDrine SULFATE 50 MG/5 ML SYG ONE (07:00)
[2016-11-09] MEDS: morphine 4 MG/ML VIAL IV PRN (08:26)
[2016-11-09] MEDS: SOD CHLORIDE 0.9% 1,000 ML IV SCH ×3 (12:46→23:30)
--- NOTE | 2016-11-09 15:35 | PN ---
Date/Time of Note Date/Time of Note DATE: 11/09/16 TIME: 15:32 Assessment/Plan VTE Prophylaxis VTE Prophylaxis Intervention: SCD's Lines/Catheters IV Catheter Type (from [facility]): Peripheral IV Urinary Cath still in place: No Assessment/Plan Chief Complaint/Hosp Course Patient is currently in surgery, no acute events reported prior to surgery per radiologic technician/Plan - Pathological fracture, left humerus. Dr. Gill is following an orthopedic surgery consultation. Patient is cleared for surgery from internal medicine standpoint. 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 - History of lumbar vertebral fracture from bony METS. - Hypercalcemia secondary to #2, s/p Zometa. - Anxiety. - Cognitive development delay. Further recommendations based on clinical course. Plan of care discussed with Dr. Connors. Problems: Exam/Review of Systems Vital Signs Vitals Vital Signs Date Time Temp Pulse Resp B/P Pulse Ox O2 Delivery O2 Flow Rate FiO2 11/09/16 07:45 Nasal Cannula 2.0 11/09/16 07:43 97.6 78 20 104/66 100 Intake and Output 11/08/16 11/08/16 11/09/16 15:00 23:00 07:00 Intake Total 1350 ml 960 ml Balance 1350 ml 960 ml Results Result Diagram: 11/07/16 0509 11/07/16 0509 Medications Medications Current Medications Ondansetron HCl (Zofran Inj) 4 mg Q6H PRN IV NAUSEA AND/OR VOMITING Last administered on 11/07/16 05:29; Admin Dose 4 MG; Start 11/04/16 at 23:30 Morphine Sulfate (morphine) 4 mg Q6H IV Last administered on 11/09/16 12:45; Admin Dose 4 MG; Start 11/05/16 at 00:00 Morphine Sulfate 4 mg 4 mg Q3H PRN IV BREAKTHROUGH PAIN Last administered on 08:26; Admin Dose 4 MG; Start 11/05/16 at 01:00 Sodium Chloride (NS) 1,000 ml @ 75 mls/hr [id number] IV Last administered on 11/09 12:46; Admin Dose 75 MLS/HR; Start 11/04/16 at 23:30 Acetaminophen (Tylenol Tab) 650 mg Q4H PRN PO PAIN AND OR ELEVATED TEMP; Start 11/04/16 at 23:30 RASHAWN MOONEY Nov 09, 2016 15:35
--- NOTE | 2016-11-09 15:41 | HPN ---
Date/Time of Note Date/Time of Note DATE: 11/09/16 TIME: 15:40 Interval H&P Admission Note Pt. seen H&P reviewed: No system changes KYLE GROSSMAN MD Nov 09, 2016 15:41
[2016-11-09] MEDS ORDERED: NEOSTIGMINE 3 MG/3 ML SYRINGE ONE (16:18)
[2016-11-09] MEDS ORDERED: SUCCINYLCHOLINE CHLORIDE 100 MG/5 ML SYG IV ONE (16:18)
[2016-11-09] MEDS ORDERED: ROCURONIUM 50 MG INJ ONE (16:18)
[2016-11-09] MEDS ORDERED: GLYCOPYRROLATE 0.4 MG INJ ONE (16:18)
[2016-11-09] MEDS ORDERED: PROPOFOL 20 ML ONE (16:18)
[2016-11-09] MEDS ORDERED: MEPERIDINE 100 MG INJ ONE (16:18)
[2016-11-09] MEDS ORDERED: LIDOCAINE 2% (SDV) 5 ML INJ ONE (16:18)
[2016-11-09] MEDS ORDERED: POLYMYXIN/BACITRACIN 1L IRRIG ONE (17:58)
[2016-11-09] MEDS ORDERED: FENTAnyl 50 MCG/ML VIAL IV PRN ×3 (18:30)
[2016-11-09] MEDS ORDERED: hydrALAzine 20 MG INJ IV PRN (18:30)
[2016-11-09] MEDS ORDERED: HYDROmorphONE (0.2 MG/ML) 10ML SYG IV PRN ×3 (18:30)
[2016-11-09] MEDS ORDERED: DIPHENHYDRAMINE 50 MG INJ IV PRN (18:30)
[2016-11-09] MEDS ORDERED: MEPERIDINE 25 MG INJ IV PRN (18:30)
[2016-11-09] MEDS ORDERED: EPHEDrine SULFATE 50 MG/5 ML SYG IV PRN (18:30)
[2016-11-09] MEDS ORDERED: METOCLOPRAMIDE 10 MG INJ IV PRN (18:30)
[2016-11-09] MEDS ORDERED: MIDAZOLAM 1 MG/ML 2 ML INJ IV PRN (18:30)
[2016-11-09] MEDS ORDERED: LABETALOL HCL 20MG INJ IV PRN (18:30)
[2016-11-09] MEDS ORDERED: OXYCODONE/ACETAMINOPHEN (5/325) TAB PO PRN ×3 (18:30→19:30)
[2016-11-09] MEDS ORDERED: ONDANSETRON 4 MG INJ IV PRN (18:30)
[2016-11-09] MEDS ORDERED: ROPIVACAINE 0.5 % 30 ML VIAL ONE (18:43)
[2016-11-09] MEDS ORDERED: METOCLOPRAMIDE 10 MG INJ ONE (18:53)
[2016-11-09] MEDS ORDERED: ONDANSETRON 4 MG INJ ONE (18:53)
[2016-11-09] MEDS ORDERED: CEFAZOLIN 1 GM/50 ML (PMX) 50 ML IVPB SCH (19:00)
[2016-11-09] MEDS ORDERED: NACL 0.9% 3 ML SYG IV SCH (19:00)
[2016-11-09] MEDS ORDERED: DEXTROSE 5%-0.45% NACL 500 ML BAG IV ONE (19:30)
--- NOTE | 2016-11-09 19:45 | OPPN ---
Date/Time of Note Date/Time of Note DATE: 11/09/16 TIME: 19:34 Operative Report Preoperative Diagnosis pathologic fracture t. humerus Postoperative Diagnosis same as preop Operation/Procedure Performed ORIF by intramedullary nailing fo Lt. humerus Anesthesia Type: general Estimated blood loss: 50 - 100 ml's Transfusion Required: no Specimen: none Grafts/Implants: none Complications: no KYLE GROSSMAN MD Nov 09, 2016 19:45
[2016-11-09] MEDS ORDERED: CEFAZOLIN 1 GM INJ IV SCH (22:00)
--- NOTE | 2016-11-09 22:00 | OPR ---
DATE OF OPERATION: 11/09/2016 PREOPERATIVE DIAGNOSIS: Pathologic fracture of the shaft of the left humerus. POSTOPERATIVE DIAGNOSIS: Pathologic fracture of the shaft of the left humerus. OPERATIVE PROCEDURE: Performed was open reduction, internal fixation of the pathologic fracture of the shaft of the left humerus by intramedullary nailing. ANESTHESIA: General anesthesia. SURGEON: Dr. Consuelo Gill. PROCEDURE AND FINDINGS: Under anesthesia, the patient was placed in supine position upon the table, which she was transformed into a modified beach chair position. Prior to the procedure the radiologic evaluation of the left upper extremity was carried out making sure that AP and lateral view of the left humerus was visible throughout the procedure utilizing fluoroscopy. The usual prep and drape was done exposing the left shoulder and left humerus. The upper end of the left humerus was approached through the radial incision exposing the upper end of the humerus. First opening the deltoid muscle and then opening the upper part of the rotator cuff radially. The upper end of the humerus was exposed. The initial guide pin was introduced into the intramedullary canal and then this was enlarged with the cannulated drill and then with the reduction guide and reamer guide. The fracture was reduced and then the reamer guide was pushed down to the distal segment. After proper positioning, measurement was made and it was my estimation that the proper length of the intramedullary nail was 20 cm. After reaming up to the 8 mm-7 mm intramedullary nail was inserted. After proper adjustment this intramedullary nail was locked both proximally and distally stabilizing the fractures. At the end of the procedure closure of the wound was carried out using 0 Vicryl for muscle and fascia and 2-0 Vicryl for subcutaneous tissues. Final skin closure was carried out and skin layne. Dictated By: Consuelo Gill MD /moreno/tristen /Document#: [id number]
--- NOTE | 2016-11-09 22:03 | RADRPT ---
PROCEDURE: Left humerus. CLINICAL INDICATION: Pain. TECHNIQUE: Two views of the left humerus. COMPARISON: 11/05/2016. FINDINGS: The patient status post fixation of mid humeral fracture with intramedullary chace and proximal screw. There is callus formation surrounding the mid humeral fracture. There is a new fracture of the pr oximal humeral shaft. There is no dislocation. The joint spaces are within normal limits. Bone mi neralization is decreased. IMPRESSION: Nondisplaced fracture of the proximal humeral shaft, new compared with the prior study. Status post fixation of mid humeral fracture. Osteopenia. .Bill Arreaga MD, Date Time Electronically viewed and signed by .Bill Arreaga MD, MD on 11/09/2016 22:02 .T/
--- NOTE | 2016-11-09 22:04 | RADRPT ---
PROCEDURE: Left humerus. CLINICAL INDICATION: Fracture, pain. TECHNIQUE: 10 fluoroscopic views of the left humerus were obtained. COMPARISON: 11/05/2016. FINDINGS: There is reduction and internal fixation of mid humeral shaft fracture with intramedullary chace and p roximal and distal screws. IMPRESSION: Intraoperative evaluation of ORIF of the left mid humeral fracture. There is improved alignment. Total fluoroscopy time of 357.[address] Gill. .Bill Arreaga MD, Date Time Electronically viewed and signed by .Bill Arreaga MD, on 11/09/2016 22:04 .T/
[2016-11-09] MEDS: ONDANSETRON 4 MG INJ IV PRN (22:06)
[2016-11-10 00:15] VITALS: BP 113/63; PULSE 94; RESP 19
[2016-11-10] MEDS: CEFAZOLIN 1 GM/50 ML (PMX) 50 ML IVPB SCH ×3 (01:02→16:41)
[2016-11-10 01:56] VITALS: BP 99/61; RESP 18
[2016-11-10 05:09] LABS: ABNORMAL IP MESSAGE 1; BASOPHILS % 0.3 % (0.0-2.0); EOSINOPHILS # 0.1 10^3/ul (0.0-0.5); EOSINOPHILS % 1.7 % (0.0-7.0); HEMATOCRIT 33.2 % (37.0-47.0); HEMOGLOBIN 10.4 g/dl (12.0-16.0); MEAN CORPUSCULAR HEMOGLOBIN 30.9 pg (29.0-33.0); MEAN CORPUSCULAR HGB CONC 31.3 g/dl (32.0-37.0); MEAN CORPUSCULAR VOLUME 98.5 fl (82.0-101.0); MEAN PLATELET VOLUME 13.1 fl (7.4-10.4); MONOCYTE # 0.3 10^3/ul (0.3-0.9); MONOCYTES % 4.7 % (0.0-11.0); NEUTROPHILS % 72.5 % (39.0-77.0); NUCLEATED RED BLOOD CELLS # 0.2 10^3/ul (0.0-0.0); NUCLEATED RED BLOOD CELLS% 3.2 /100WBC (0.0-0.0); PLATELET COUNT 122 10^3/UL (140-415); RED BLOOD COUNT 3.37 10^6/ul (4.20-5.40); RED CELL DISTRIBUTION WIDTH 17.2 % (11.5-14.5); WHITE BLOOD COUNT 6.9 10^3/ul (4.8-10.8)
[2016-11-10 05:17] LABS: POSITIVE DIFF @See below
[2016-11-10] MEDS: SOD CHLORIDE 0.9% 1,000 ML IV SCH ×3 (05:32→14:50)
[2016-11-10 05:40] LABS: CREATININE 0.35 mg/dl (0.44-1.00)
[2016-11-10] MEDS: morphine 4 MG/ML VIAL IV SCH ×4 (06:00→18:00)
[2016-11-10 06:15] LABS: POTASSIUM 2.8 mmol/L (3.5-5.1)
[2016-11-10] MEDS ORDERED: POTASSIUM CHLORIDE (SR) 10 MEQ TAB PO ONE (07:00)
[2016-11-10 07:52] VITALS: BP 104/65; RESP 18
[2016-11-10] MEDS ORDERED: POTASSIUM CHLORIDE (SR) 10 MEQ TAB PO SCH (11:00)
[2016-11-10] MEDS ORDERED: POTASSIUM CHLORIDE 250 ML IVPB ONE (13:00)
[2016-11-10 14:00] VITALS: BP 107/65; RESP 18
--- NOTE | 2016-11-10 16:55 | PN ---
Date/Time of Note Date/Time of Note DATE: 11/10/16 TIME: 16:51 Assessment/Plan VTE Prophylaxis VTE Prophylaxis Intervention: SCD's Lines/Catheters IV Catheter Type (from [facility]): Peripheral IV Urinary Cath still in place: Yes Reason Cath still needed: urinary retention Assessment/Plan Chief Complaint/Hosp Course Patient was low potassium potassium replacement was given, patient complained of postoperative pain, denies any nausea vomiting. Assessment/Plan - Pathological fracture of the left humerus, s/p ORIF on 11/09. Dr. Gill is following an orthopedic surgery consultation. Continue Percocet and [place] as needed for pain. 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 - History of lumbar vertebral fracture from bony METS. - Hypercalcemia, s/p Zometa, resolved. - Anxiety. - Cognitive development delay. Further recommendations based on clinical course. Plan of care discussed with Dr. Connors. Problems: Exam/Review of Systems Vital Signs Vitals Vital Signs Date Time Temp Pulse Resp B/P Pulse Ox O2 Delivery O2 Flow Rate FiO2 11/10/16 14:00 98.2 92 18 107/65 97 11/10/16 09:27 Nasal Cannula 2.0 Intake and Output 11/09/16 11/09/16 11/10/16 15:00 23:00 07:00 Intake Total 1870 ml 1200 ml Output Total 250 ml 500 ml Balance 1620 ml 700 ml Exam Constitutional: alert, oriented Psych: confusion, other (Developmentally delayed) Head: normocephalic Neck: supple Respiratory: normal air movement Cardiovascular: nl pulses Gastrointestinal: non-tender, soft Extremities: normal pulses, other (Left upper extremity s/p surgery ) Skin: nl turgor Results Result Diagram: 11/10/16 0441 11/10/16 044 Results 24 hrs Laboratory Tests Test 11/09/16 19:05 11/10/16 04:41 Bedside Glucose 60 L White Blood Count 6.9 # Red Blood Count 3.37 L Hemoglobin 10.4 L Hematocrit 33.2 L Mean Corpuscular Volume 98.5 Mean Corpuscular Hemoglobin 30.9 Mean Corpuscular Hemoglobin Concent 31.3 L Red Cell Distribution Width 17.2 H Platelet Count 122 #L Mean Platelet Volume 13.1 H Neutrophils % 72.5 Lymphocytes % 15.0 Monocytes % 4.7 Eosinophils % 1.7 Basophils % 0.3 Nucleated Red Blood Cells % 3.2 H Neutrophils # (Manual) 5 Lymphocytes # 1.0 Monocytes # 0.3 Eosinophils # 0.1 Basophils # 0.0 Nucleated Red Blood Cells # 0.2 H Sodium Level 141 Potassium Level 2.8 *L Chloride Level 107 Carbon Dioxide Level 29 Anion Gap 8 Blood Urea Nitrogen 7 Creatinine 0.35 L Glucose Level 175 Calcium Level 8.0 L Medications Medications Current Medications Ondansetron HCl (Zofran Inj) 4 mg Q6H PRN IV NAUSEA AND/OR VOMITING Last administered on 11/09/16 22:06; Admin Dose 4 MG; Start 11/04/16 at 23:30 Morphine Sulfate (morphine) 4 mg Q6H IV Last administered on 11/10/16 13:12; Admin Dose 4 MG; Start 11/05/16 at 00:00 Morphine Sulfate 4 mg 4 mg Q3H PRN IV BREAKTHROUGH PAIN Last administered on 08:26; Admin Dose 4 MG; Start 11/05/16 at 01:00 Sodium Chloride (NS) 1,000 ml @ 75 mls/hr [id number] IV Last administered on 11/10 13:12; Admin Dose 75 MLS/HR; Start 11/04/16 at 23:30 Acetaminophen 650 mg 650 mg Q4H PRN PO PAIN AND OR ELEVATED TEMP; Start at 23:30 Sodium Chloride (NS) 1,000 ml @ 100 mls/hr Q10H IV Last administered on 14:50; Admin Dose 100 MLS/HR; Start 11/09/16 at 18:50 Morphine Sulfate (morphine) 3 mg Q3H PRN IV PAIN; Start 11/09/16 at 19:30 Oxycodone/ Acetaminophen 1 tab 1 tab Q3H PRN PO pain; Start 11/09/16 at 19:30 Cefazolin Sodium 50 ml @ 100 mls/hr Q8H IVPB Last administered on 11/10/16 16 :41; Admin Dose 100 MLS/HR; Start 11/10/16 at 01:00; Stop 11/10/16 at 17:29 Potassium Chloride (KCl 40 MEQ/250 ML NS) 250 ml @ 62.5 mls/hr ONCE ONCE IVPB Last administered on 11/10/16 15:15; Admin Dose 62.5 MLS/HR; Start 11/10/16 at 13:00; Stop 11/10/16 at 16:59 RASHAWN MOONEY Nov 10, 2016 16:55
[2016-11-10 19:43] VITALS: BP 117/68; RESP 18
[2016-11-10] MEDS: ONDANSETRON 4 MG INJ IV PRN (22:35)
[2016-11-10] MEDS ORDERED: ZOLPIDEM 5 MG TAB PO PRN (23:30)
[2016-11-11] MEDS: SOD CHLORIDE 0.9% 1,000 ML IV SCH ×3 (00:38→15:25)
[2016-11-11] MEDS: morphine 4 MG/ML VIAL IV SCH ×4 (00:42→18:00)
[2016-11-11 02:53] VITALS: BP 122/64; PULSE 74; RESP 18
[2016-11-11 05:23] LABS: WHITE BLOOD COUNT 10.8 10^3/ul (4.8-10.8)
[2016-11-11 05:24] LABS: ABNORMAL IP MESSAGE 1; BASOPHIL # 0.1 10^3/ul (0.0-0.1); BASOPHILS % 0.9 % (0.0-2.0); EOSINOPHILS # 0.1 10^3/ul (0.0-0.5); EOSINOPHILS % 0.9 % (0.0-7.0); HEMATOCRIT 34.4 % (37.0-47.0); LYMPHOCYTES # 2.4 10^3/ul (0.8-2.9); MEAN CORPUSCULAR HEMOGLOBIN 31.4 pg (29.0-33.0); MEAN CORPUSCULAR VOLUME 98.3 fl (82.0-101.0); MEAN PLATELET VOLUME 13.1 fl (7.4-10.4); MONOCYTE # 0.6 10^3/ul (0.3-0.9); MONOCYTES % 5.9 % (0.0-11.0); NEUTROPHILS % 61.2 % (39.0-77.0); NUCLEATED RED BLOOD CELLS # 0.7 10^3/ul (0.0-0.0); PLATELET COUNT 109 10^3/UL (140-415); RED CELL DISTRIBUTION WIDTH 17.5 % (11.5-14.5)
[2016-11-11 05:33] LABS: POSITIVE DIFF @See below
[2016-11-11 06:47] LABS: CALCIUM 7.6 mg/dl (8.4-10.2); CREATININE 0.33 mg/dl (0.44-1.00); POTASSIUM 3.7 mmol/L (3.5-5.1)
[2016-11-11 07:30] VITALS: BP 118/71; RESP 19
[2016-11-11 13:44] VITALS: BP 125/66; RESP 20
--- NOTE | 2016-11-11 13:55 | PN ---
Date/Time of Note Date/Time of Note DATE: 11/11/16 TIME: 13:53 Assessment/Plan VTE Prophylaxis VTE Prophylaxis Intervention: SCD's Lines/Catheters IV Catheter Type (from [facility]): Peripheral IV Urinary Cath still in place: No Assessment/Plan Chief Complaint/Hosp Course Patient with a left upper extremity hand swelling, will obtain left upper extremity ultrasound, elevate left upper extremity on the pillow. Assessment/Plan - Pathological fracture of the left humerus, s/p ORIF on 11/09. Dr. Gill is following an orthopedic surgery consultation. Continue Percocet and [place] as needed for pain. 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 - History of lumbar vertebral fracture from bony metastasis. - Hypercalcemia, s/p Zometa, resolved. - Anxiety. - Cognitive development delay. Further recommendations based on clinical course. Plan of care discussed with Dr. Connors. Problems: Exam/Review of Systems Vital Signs Vitals Vital Signs Date Time Temp Pulse Resp B/P Pulse Ox O2 Delivery O2 Flow Rate FiO2 11/11/16 13:44 97.5 89 20 125/66 98 11/11/16 02:53 Room Air 11/10/16 09:27 2.0 Intake and Output 11/10/16 11/10/16 11/11/16 15:00 23:00 07:00 Intake Total 800 ml 2025 ml 3600 ml Output Total 400 ml 2400 ml Balance 800 ml 1625 ml 1200 ml Exam Constitutional: alert, oriented Psych: confusion, other (Developmentally delayed) Respiratory: normal air movement Cardiovascular: nl pulses Gastrointestinal: non-tender, soft Extremities: normal pulses, other (Left upper extremity s/p surgery ) Results Result Diagram: 11/11/16 0451 11/11/16 0451 Results 24 hrs Laboratory Tests Test 11/11/16 04:51 White Blood Count 10.8 # Red Blood Count 3.50 L Hemoglobin 11.0 L Hematocrit 34.4 L Mean Corpuscular Volume 98.3 Mean Corpuscular Hemoglobin 31.4 Mean Corpuscular Hemoglobin Concent 32.0 Red Cell Distribution Width 17.5 H Platelet Count 109 L Mean Platelet Volume 13.1 H Neutrophils % 61.2 Lymphocytes % 22.0 Monocytes % 5.9 Eosinophils % 0.9 Basophils % 0.9 Nucleated Red Blood Cells % 6.0 H Neutrophils # (Manual) 7 Lymphocytes # 2.4 Monocytes # 0.6 Eosinophils # 0.1 Basophils # 0.1 Nucleated Red Blood Cells # 0.7 H Sodium Level 142 Potassium Level 3.7 Chloride Level 111 H Carbon Dioxide Level 26 Anion Gap 9 Blood Urea Nitrogen 5 L Creatinine 0.33 L Glucose Level 95 # Calcium Level 7.6 L Medications Medications Current Medications Ondansetron HCl (Zofran Inj) 4 mg Q6H PRN IV NAUSEA AND/OR VOMITING Last administered on 11/10/16 22:35; Admin Dose 4 MG; Start 11/04/16 at 23:30 Morphine Sulfate (morphine) 4 mg Q6H IV Last administered on 11/11/16 00:42; Admin Dose 4 MG; Start 11/05/16 at 00:00 Acetaminophen 650 mg 650 mg Q4H PRN PO PAIN AND OR ELEVATED TEMP; Start at 23:30 Sodium Chloride (NS) 1,000 ml @ 100 mls/hr Q10H IV Last administered on 00:38; Admin Dose 100 MLS/HR; Start 11/09/16 at 18:50 Morphine Sulfate (morphine) 3 mg Q3H PRN IV PAIN; Start 11/09/16 at 19:30 Oxycodone/ Acetaminophen (Percocet (5/ 325)) 1 tab Q3H PRN PO pain; Start 11/09 at 19:30 Collagenase (Santyl) 1 applic DAILY TOP ; Start 11/12/16 at 09:00 RASHAWN MOONEY Nov 11, 2016 13:55
--- NOTE | 2016-11-11 14:41 | RADRPT ---
PROCEDURE: US upper extremity Venous. CLINICAL INDICATION: Left arm edema TECHNIQUE: Multiple sonographic images of the left upper extremity venous system was obtained util izing grayscale, color-flow, compressive sonography and doppler imaging with augmentation. The imag es were reviewed on a PACS workstation. COMPARISON: None. FINDINGS: There is normal compressibility and flow within the left internal jugular vein, subclavian vein, axi llary vein, brachial, basilic, cephalic, radial and ulnar veins. RPTAT: AA IMPRESSION: No sonographic evidence for venous thrombosis. .Christian Espino MD, MD Date Time Electronically viewed and signed by .Christian Espino MD, MD on 11/11/2016 14:40 .S/
[2016-11-11 20:00] VITALS: BP 125/76; RESP 18
--- NOTE | 2016-11-11 20:34 | PN ---
DATE: 11/11/2016 SUBJECTIVE DATA: Second postop day. OBJECTIVE DATA: VITAL SIGNS: Afebrile. EXTREMITIES: Considerable swelling in the left upper extremity. LABORATORY AND DIAGNOSTIC DATA: The latest H and H is 11.0 and 34.4. ASSESSMENT AND PLAN: However, there are no signs of compartment syndrome or neurovascular compromise. The left upper extremity was elevated by using the IV pole. Dictated By: In Karma Gill MD /moreno/elsa /Document#: [id number]
[2016-11-11] MEDS: ONDANSETRON 4 MG INJ IV PRN (22:17)
[2016-11-11] MEDS: COLLAGENASE 30 GM TUBE TOP SCH (22:39)
[2016-11-11] MEDS: morphine 4 MG/ML VIAL IV PRN (22:39)
[2016-11-12 02:00] VITALS: BP 110/65; PULSE 89; RESP 17
[2016-11-12] MEDS: morphine 4 MG/ML VIAL IV PRN (04:52)
[2016-11-12] MEDS: SOD CHLORIDE 0.9% 1,000 ML IV SCH (04:58)
[2016-11-12] MEDS: morphine 4 MG/ML VIAL IV SCH ×3 (06:00→12:12)
[2016-11-12 06:10] LABS: ABNORMAL IP MESSAGE 1; HEMOGLOBIN 9.4 g/dl (12.0-16.0); MEAN CORPUSCULAR HEMOGLOBIN 30.7 pg (29.0-33.0); MEAN CORPUSCULAR HGB CONC 31.3 g/dl (32.0-37.0); MEAN PLATELET VOLUME 13.7 fl (7.4-10.4); PLATELET COUNT 102 10^3/UL (140-415); RED BLOOD COUNT 3.06 10^6/ul (4.20-5.40); RED CELL DISTRIBUTION WIDTH 18.1 % (11.5-14.5); WHITE BLOOD COUNT 11.2 10^3/ul (4.8-10.8)
[2016-11-12 06:22] LABS: POSITIVE DIFF @See below
[2016-11-12 06:40] LABS: CALCIUM 7.6 mg/dl (8.4-10.2); CREATININE 0.3 mg/dl (0.44-1.00); POTASSIUM 3.3 mmol/L (3.5-5.1)
[2016-11-12 07:51] LABS: ANISOCYTOSIS 1+ (0-0); EOSINOPHILS % (M) 1 % (0-7); ERYTHROBLAST% (NRBC) (M) 11 % (0-0); GIANT THROMBO% (M) 1 % (0-0); METAMYELOCYTES %M 1 % (0-0); MONOCYTES % (M) 3 % (0-11); PLATELET ESTIMATE DECREASED; POLYCHROMASIA 1+ (0-0)
[2016-11-12 08:26] VITALS: BP 119/74; RESP 20
[2016-11-12] MEDS ORDERED: COLLAGENASE 30 GM TUBE TOP SCH (09:00)
[2016-11-12] MEDS: COLLAGENASE 30 GM TUBE TOP SCH (12:13)
--- NOTE | 2016-11-12 15:30 | DS ---
Date/Time of Note Date/Time of Note DATE: 11/12/16 TIME: 15:17 Discharge Summary Admission/Discharge Info Admit Date/Time Nov 04, 2016 at 19:31 Discharge Date/Time Discharge Diagnosis - Patient with a left upper extremity hand swelling -negative for DVT - Pathological fracture of the left humerus, s/p ORIF on 11/[address] 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 - History of lumbar vertebral fracture from bony metastasis. - Hypercalcemia, s/p Zometa, resolved. - Anxiety. - Cognitive development delay. Patient Condition: Stable Consults Ortho- Dr Israel Gill Procedures 11/09/2016- Performed was open reduction, internal fixation of the pathologic fracture of the shaft of the left humerus by intramedullary nailing. Hospital Course The patient is an 56-year-old female, a SNF resident with history of cognitive developmental delay, but has high functional, metastatic cancer of unknown etiology suspicious for breast cancer, diabetes The patient was admitted with c/o of severe left upper extremity pain x few days ago. A stat x-rays were ordered at the intermediate facility today, and the patient was noted to have ambulated minimally displaced fracture of the mid humeral shaft with associated areas of lysis representing pathological fractures secondary to bony METS. 11/09/2016- Dr Bridget Wood performed was open reduction, internal fixation of the pathologic fracture of the shaft of the left humerus by intramedullary nailing. Constitutional: alert, oriented to name. ,vss Psych: confusion, other (Developmentally delayed) Respiratory: normal air movement Cardiovascular: nl pulses Gastrointestinal: non-tender, soft Extremities: normal pulses, other (Left upper extremity s/p surgery ) Patient was cleared by ortho to transfer to SNF when stable/ Plan of care discussed with Dr. Connors/staff/family Home Meds Reported Medications Lorazepam* (Lorazepam*) 0.5 Mg Tablet, 0.5 MG PO Q6 Y for ANXIETY, TAB 11/04/16 Bisacodyl* (Bisacodyl*) 10 Mg Supp, 10 MG ID DAILY, SUPP 11/04/16 [Morphine Slf 20MG/Ml] No Conflict Check, 0.25 ML PO Q3H 11/04/16 Hyoscyamine Sulfate* (Levsin* SL) 0.125 Mg Subl, 0.125 MG SL Q4H Y for EXCESSIVE SECRETION, TAB 11/04/16 Lactulose* (Lactulose*) 20 Gm/30 Ml Solution, 20 GM PO DAILY, ML 11/04/16 Acetaminophen* (Acephen*) 650 Mg Supp.rect, 650 MG ID Q6H Y for FOR TEMP>100F, SUPP.RECT FOR MILD PAIN 11/04/16 Prochlorperazine* (Prochlorperazine*) 10 Mg Tablet, 10 MG PO Q6H Y for NAUSEA, TAB 11/04/16 Metformin Hcl* (Metformin Hcl*) 500 Mg Tablet, 500 MG PO WITH BREAKFAST DINNE, # 60 TAB 11/04/16 Follow-up Plan Call 911 OR send to hospital if symptoms get worse. DW Dr Connors/staff Primary Care Provider Care Physician No Primary Time spent on discharge: < 30 minutes Pending Labs Laboratory Tests Test 11/12/16 05:05 White Blood Count 11.210^3/ul (4.8-10.8) Red Blood Count 3.0610^6/ul (4.20-5.40) Hemoglobin 9.4g/dl (12.0-16.0) Hematocrit 30.0% (37.0-47.0) Mean Corpuscular Volume 98.0fl (82.0-101.0) Mean Corpuscular Hemoglobin 30.7pg (29.0-33.0) Mean Corpuscular Hemoglobin Concent 31.3g/dl (32.0-37.0) Red Cell Distribution Width 18.1% (11.5-14.5) Platelet Count 29095^3/UL (140-415) Mean Platelet Volume 13.7fl (7.4-10.4) Neutrophils % % (39.0-77.0) Segmented Neutrophils % (Manual) 72% (39-77) Band Neutrophils % (Manual) 12% (0-4) Lymphocytes % % (15.0-51.0) Lymphocytes % (Manual) 11% (15-51) Monocytes % % (0.0-11.0) Monocytes % (Manual) 3% (0-11) Eosinophils % % (0.0-7.0) Eosinophils % (Manual) 1% (0-7) Basophils % % (0.0-2.0) Metamyelocytes % (manual) 1% (0-0) Nucleated Red Blood Cells % 11% (0-0) Neutrophils # (Manual) 810^3/ul (1.7-7.5) Band Neutrophils # 1.310^3/ul (0.0-0.6) Absolute Lymphocytes (Manual) 1.210^3/ul (0.8-2.9) Lymphocytes # 10^3/ul (0.8-2.9) Monocytes # 10^3/ul (0.3-0.9) Absolute Monocytes (Manual) 0.310^3/ul (0.3-0.9) Eosinophils # 10^3/ul (0.0-0.5) Basophils # 10^3/ul (0.0-0.1) Metamyelocytes # 0.110^3/ul (0.0-0.0) Nucleated Red Blood Cells # 10^3/ul (0.0-0.0) Thrombocytosis 1% (0-0) Platelet Estimate DECREASED Polychromasia 1+ (0-0) Anisocytosis 1+ (0-0) Macrocytosis 1+ (0-0) Sodium Level 142mmol/L (135-144) Potassium Level 3.3mmol/L (3.5-5.1) Chloride Level 110mmol/L (97-110) Carbon Dioxide Level 29mmol/L (21-31) Anion Gap 6 (8-16) Blood Urea Nitrogen 4mg/dl (7-20) Creatinine 0.30mg/dl (0.44-1.00) Glucose Level 93mg/dl (70-220) Calcium Level 7.6mg/dl (8.4-10.2) NATALI RAMIREZ Nov 12, 2016 15:29 Blood Urea Nitrogen 4mg/dl (7-20) Creatinine 0.30mg/dl (0.44-1.00) Glucose Level 93mg/dl (70-220) Calcium Level 7.6mg/dl (8.4-10.2) NATALI RAMIREZ Nov 12, 2016 15:29
--- NOTE | 2016-11-12 15:34 | PDOCDIS ---
Discharge Instructions CONDITION Patient Condition: Stable HOME CARE INSTRUCTIONS: Special Diet: mechanical soft ACTIVITY: Activity Restrictions: Slowly Increase Activity Rest between Activity Avoid heavy lifting Do not operate Machinery Do not operate Power Tool Avoid Heavy Housework Bathing Restrictions: Sponge Bath REFERRALS Other Referrals FU PMD as recommended Call 911 or transfer to near hospital if symptoms worsen. Ab Connors/staff NATALI RAMIREZ Nov 12, 2016 15:34
[2016-11-12 15:53] VITALS: BP 130/84; RESP 20
[2016-11-12] MEDS ORDERED: ALPRAZOLAM 0.25 MG TAB PO ONE (16:30)
== END 2016-11-12 17:53 | DRG 493 ==
LOC: E/R 18:19 → MS1 19:31
PROVIDERS: ADMIT Internal Medicine; ATTEND Internal Medicine
PROC: 0PSG04Z Reposition Left Humeral Shaft with Internal Fixation Device, Open Approach (ICD-10-PCS; principal; 2016-11-09 15:00)
DX: M84.522A Pathological fracture in neoplastic disease, left humerus, initial encounter for fracture (principal); C79.51 Secondary malignant neoplasm of bone; L89.150 Pressure ulcer of sacral region, unstageable; C50.919 Malignant neoplasm of unspecified site of unspecified female breast; E83.52 Hypercalcemia; E11.9 Type 2 diabetes mellitus without complications; E87.6 Hypokalemia; F41.9 Anxiety disorder, unspecified; R62.59 Other lack of expected normal physiological development in childhood
CPT/HCPCS: 36415; 71010; 73060; 80048; 82962; 85025; 85049; 85610; 85670; 85730; 87081; 87086; 93005; 93306; 93971; 96374; 96375; J3487; C1713; J0690; J1170; J2175; J2270; J2405; J2710; J2765; J2795; J3480; J7030; J7999